=== PATIENT | male | born 2000 | race Hispanic/Latino ===

== ENCOUNTER 2021-11-21 16:48 | Emergency (ER) | payer SELFPAY ==
[2021-11-21] MEDS ORDERED: NA CHLORIDE 0.9% 1,000 ML ONE ×3 (17:08→19:41)
[2021-11-21] MEDS ORDERED: MORPHINE 4 MG/ML SYR ONE (17:09)
[2021-11-21] MEDS ORDERED: ONDANSETRON 4 MG/2 ML VIAL ONE (17:09)
[2021-11-21 17:14] LABS: Absolute Lymphocytes (CBC) 1.5 K/uL (0.7-4.9); Hematocrit 42.5 % (39.6-49.0); Lymphocytes % 16.8 % (15.3-44.8); MPV 9.2 fL (7.6-11.3); RBC Red Blood Cell Count 5.04 M/uL (4.33-5.43)
--- NOTE | 2021-11-21 18:05 | RAD REPORT ---
EXAM DESCRIPTION: CT - Head C Spine Cap Marla Juarez - 11/21/2021 5:36 pm CLINICAL HISTORY: Head and neck injury with chest and abdominal pain status post fall from a ladder. . Head and neck pain . TECHNIQUE: Computed axial tomography of the head and cervical spine was obtained Computed axial tomography of the chest, abdomen and pelvis was obtained. 100 cc Isovue-300 was given intravenously coronal and sagittal reconstruction was performed. All CT scans are performed using dose optimization technique as appropriate and may include automated exposure control or mA/KV adjustment according to patient size. COMPARISON: none FINDINGS: An intracranial bleed is not seen. The ventricles are normal in caliber. An extra-axial fl uid collection is not noted. Fluid within the sinuses is not seen A cervical fracture is not seen. No dislocation is seen. A mediastinal hematoma is not noted. A pleural effusion is not present. A lung contusion is not seen. Pneumo mediastinum is present. Subcutaneous emphysema extends into the lower neck. The majority of th e air surrounds the esophagus. The liver, spleen, pancreas, adrenals, kidneys and bladder do not demonstrate a traumatic injury IMPRESSION: No acute intracranial abnormality is seen A cervical fracture is not visualized. If the patient continues have symptoms to suggest intracranial /spinal cord pathology then MRI would be recommended. Pneumomediastinum. I suspect there is an esophageal tear
[2021-11-21] MEDS ORDERED: MORPHINE 2 MG/ML SYR ONE (18:25)
[2021-11-21] MEDS ORDERED: PIPERACIL/TAZO 3.375 GM VIAL IV ONE (18:27)
[2021-11-21] MEDS ORDERED: NA CHLORIDE 0.9% 100 ML IV ONE (18:27)
--- NOTE | 2021-11-21 18:27 | EDPHYS ---
Physician Documentation [facility] Name: Ceasar Nichole Age: 21 yrs Sex: Male : 2000 Arrival Date: 11/21/2021 Time: 16:49 Bed 5 Private MD: ED Physician Huang Morrow HPI: 11/21 16:55 This 21 yrs old Male presents to ER via Unassigned with complaints of Fall cp Injury. 16:55 Details of fall: The patient fell from a height, from a ladder, approximately 12 feet, cp and struck a grass-covered surface. Onset: The symptoms/episode began/occurred 2 hour(s) ago. Associated injuries: The patient sustained injury to the chest, specifically the right clavicle, anterior aspect of right upper chest and mid-sternal area, pain with breathing, pain with movement. 16:55 Severity of symptoms: in the emergency department the symptoms are actually worse, cp moderately. Patient reports losing balance while standing on ladder with feet 10-15 feet off ground. Believes he landed on right shoulder area with no LOC. Historical: - Allergies: 16:55 No Known Allergies; ll1 - PMHx: 16:55 None; ll1 - PSHx: 16:55 None; ll1 - Immunization history:: Client reports having NOT received the Covid vaccine. - Social history:: Smoking status: Reported history of juuling and/or vaping. - Immunization history: Last tetanus immunization: > 10 years ago. ROS: 17:00 Constitutional: Negative for body aches, chills, fever, poor PO intake. cp 17:00 Neck: Negative for pain with movement, pain at rest. cp 17:00 Cardiovascular: Positive for chest pain. 17:00 Respiratory: Negative for cough, shortness of breath, wheezing. 17:00 Abdomen/GI: Negative for abdominal pain, vomiting, diarrhea, constipation. 17:00 Back: Negative for pain at rest, pain with movement. 17:00 Neuro: Negative for altered mental status, syncope, weakness. 17:00 All other systems are negative. Exam: 17:05 Constitutional: The patient appears in no acute distress, alert, awake, cp non-diaphoretic, non-toxic, well developed, well nourished, uncomfortable. 17:05 Head/Face: Normocephalic, atraumatic. cp 17:05 Eyes: Periorbital structures: appear normal, Pupils: equal, round, and reactive to light and accomodation, Extraocular movements: intact throughout, Conjunctiva: normal, no exudate, no injection, Lids and lashes: appear normal, bilaterally. 17:05 ENT: External ear(s): are unremarkable, Nose: is normal, Mouth: Lips: moist, Oral mucosa: moist, Posterior pharynx: Airway: no evidence of obstruction, patent. 17:05 Neck: C-spine: C-collar placed in ED, vertebral tenderness, is not appreciated, crepitus, is not appreciated. 17:05 Chest/axilla: Inspection: normal, Palpation: crepitus, is not appreciated, tenderness, that is moderate, of the right clavicle, anterior aspect of right upper chest and mid-sternal area, that partially reproduces the patient's complaints. 17:05 Cardiovascular: Rate: normal, Rhythm: regular, Edema: is not appreciated, JVD: is not appreciated. 17:05 Respiratory: the patient does not display signs of respiratory distress, Respirations: normal, no use of accessory muscles, no retractions, labored breathing, is not present, Breath sounds: are clear throughout, no decreased breath sounds, no stridor, no wheezing. 17:05 Abdomen/GI: Inspection: abdomen appears normal, Bowel sounds: active, all quadrants, Palpation: abdomen is soft and non-tender, in all quadrants, rebound tenderness, is not appreciated, involuntary guarding, is not appreciated. 17:05 Back: pain, is absent, ROM is normal. 17:05 Musculoskeletal/extremity: Extremities: all appear grossly normal, with no appreciated pain with palpation. 17:05 Neuro: Orientation: to person, place \\T\\ time. Mentation: is normal, Cerebellar function: is grossly normal, Motor: moves all fours, strength is normal, Sensation: is normal. Vital Signs: 16:55 BP 134 / 80; Pulse 63; Resp 16; Temp 98.8; Pulse Ox 100% ; Weight 65.77 kg; Height 5 ll1 ft. 10 in. (177.80 cm); Pain 10/10; 18:40 BP 144 / 93; Pulse 78; Resp 16; Pulse Ox 100% on R/A; ic1 19:25 BP 127 / 73; Pulse 67; Resp 18 S; Pulse Ox 99% on R/A; as6 20:51 BP 114 / 67; Pulse 75; Resp 18 S; Pulse Ox 99% on R/A; as6 22:03 BP 125 / 73; Pulse 61; Resp 18 S; Pulse Ox 99% on R/A; as6 16:55 Body Mass Index 20.81 (65.77 kg, 177.80 cm) ll1 [place] Coma Score: 17:44 Eye Response: spontaneous(4). Verbal Response: oriented(5). Motor Response: obeys ic1 commands(6). Total: 15. Trauma Score (Adult): 17:44 Eye Response: spontaneous(1); Verbal Response: oriented(1); Motor Response: obeys ic1 commands(2); Systolic BP: > 89 mm Hg(4); Respiratory Rate: 10 to 29 per min(4); [place] Score: 15; Trauma Score: 12 MDM: 16:54 Patient medically screened. cp 18:00 Differential diagnosis: closed head injury, contusion, fracture, multiple trauma. cp 18:28 Data reviewed: vital signs, nurses notes, lab test result(s), radiologic studies, I cp have discussed the patient's presentation/case with the attending Emergency Department Physician; and as a result, I will administer antibiotics Zosyn, transfer patient. Data interpreted: Pulse oximetry: on room air is 100 %. Interpretation: normal. 18:45 ED course: . ED course: Consulted with Dr. Chaves, recommends transfer to trauma rn center for pneumomediastinum. Spoke with Loida Gomez, who accepts transfer but they do not believe is esophageal tear and likely going to discharge patient. . 11/21 16:56 Order name: Basic Metabolic Panel; Complete Time: 18:10 cp 11/21 18:10 Interpretation: Normal except: GFR 79. 11/21 16:56 Order name: CBC with Diff; Complete Time: 18:10 11/21 18:11 Interpretation: Normal except: MCV 84.2; CHANEL% 77.0. cp 11/21 16:56 Order name: Type And Screen; Complete Time: 18:43 cp 11/21 16:56 Order name: CT Traumagram (Head C Spine CAP W Con); Complete Time: 18:10 11/21 18:24 Order name: COVID-19 SARS RT PCR (Document "Date of Onset" if Symptomatic) cp 11/21 18:24 Order name: SARS-COV-2 RT PCR EDMS 11/21 16:56 Order name: Labs collected and sent; Complete Time: 17:03 cp Administered Medications: 07:15 Drug: morphine 2 mg Route: IVP; Site: right antecubital; ic1 17:15 Drug: NS 0.9% 1000 ml Route: IV; Rate: 1 bolus; Site: right antecubital; ic1 19:25 Follow up: Response: No adverse reaction; IV Status: Completed infusion; IV Intake: lg3 1000ml 17:15 Drug: Zofran (Ondansetron) 4 mg Route: IVP; Site: right antecubital; ic1 19:24 Follow up: Response: No adverse reaction lg3 18:38 Drug: NS 0.9% 1000 ml Route: IV; Rate: 1 bolus; Site: left antecubital; ic1 19:24 Follow up: IV Status: Completed infusion; IV Intake: 1000ml lg3 18:39 Dru.375 grams of (Zosyn (piperacillin-tazobactam) 3.375 grams, NS 0.9% 100 ml) ic1 Route: IVPB; Infused Over: 60 mins; Site: right antecubital; 19:24 Follow up: Response: No adverse reaction; IV Status: Completed infusion; IV Intake: lg3 100ml 18:40 Drug: morphine 2 mg Route: IVP; Site: right antecubital; ic1 19:24 Follow up: Response: No adverse reaction lg3 19:42 Drug: NS 0.9% 1000 ml Route: IV; Rate: 125 ml/hr; Site: right antecubital; as6 22:05 Follow up: IV Status: Infusion continued upon transfer as6 Disposition: 18:45 Co-signature as Attending Physician, Huang Morrow MD I agree with the assessment and rn plan of care. Attestation: The patient's history, exam findings, diagnostics, and a summary of any interventions or procedures was reviewed in detail with Luis PAINTING. Disposition Summary: 11/21/21 18:26 Transfer Ordered Transfer Location: [facility] cp Reason: Higher level of care cp Condition: Stable cp Problem: new cp Symptoms: have improved cp Accepting Physician: Doctor(11/21/21 22:05) as6 Diagnosis - Traumatic Pneumomediastinum cp - Fall on and from ladder, initial encounter cp Forms: - Medication Reconciliation Form cp - SBAR form cp Signatures: Dispatcher [employer] EDMS Huang Morrow MD MD rn Page, Corey, PA PA cp Sina Amin RN RN ll1 Titi Murray RN RN as6 Shiloh Jay RN RN ic1 Kim Chanel RN lg3 Corrections: (The following items were deleted from the chart) 18:11 18:11 Normal except: MCV 84.2. cp cp 22:05 18:26 Doctor cp as6
--- NOTE | 2021-11-21 18:27 | ER ---
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 No LOC ll1 or head injury. Chest pain and tenderness since. Gait steady. Coronavirus screen: Vaccine status: Patient reports being unvaccinated. Client denies travel out of the [place] in the last 14 days. At this time, the client does not indicate any symptoms associated with coronavirus-19. Ebola Screen: Patient denies travel to an Ebola-affected area in the 21 days before illness onset. Initial Sepsis Screen: Does the patient meet any 2 criteria? No. Patient's initial sepsis screen is negative. Does the patient have a suspected source of infection? No. Patient's initial sepsis screen is negative. Risk Assessment: Do you want to hurt yourself or someone else? Patient reports no desire to harm self or others. Onset of symptoms was November 21, 2021. 16:55 Method Of Arrival: Ambulatory ll1 16:55 Acuity: INDIRA 3 ll1 19:26 Care prior to arrival: None. Mechanism of Injury: Fall approximately 15 feet. Trauma as6 event details: Injury occurred in the [facility]. Triage Assessment: 16:57 General: Appears uncomfortable, Behavior is calm, cooperative, appropriate for age. ll1 Pain: Complains of pain in chest. Trauma Activation: Alert Physician: ED Physician; Name: ; Notified At: ; Arrived At: Physician: General Surgeon; Name: ; Notified At: ; Arrived At: Physician: Radiology; Name: ; Notified At: ; Arrived At: Physician: Respiratory; Name: ; Notified At: ; Arrived At: Physician: Lab; Name: ; Notified At: ; Arrived At: Historical: - Allergies: 16:55 No Known Allergies; ll1 - PMHx: 16:55 None; ll1 - PSHx: 16:55 None; ll1 - Immunization history:: Client reports having NOT received the Covid vaccine. - Social history:: Smoking status: Reported history of juuling and/or vaping. - Immunization history: Last tetanus immunization: > 10 years ago. Screenin:44 Abuse screen: Denies threats or abuse. Denies injuries from another. Tuberculosis ic1 screening: No symptoms or risk factors identified. 19:07 Nutritional screening: No deficits noted. Fall Risk Fall in past 12 months (25 points). as6 Total Allen Fall Scale indicates Low Risk Score (25-44 pts). Side Rails Up X 2 Family Present and informed to notify staff if they need to leave bedside As available Patient and Family Educated on Fall Prevention Program and strategies. Primary Survey: 17:44 NO uncontrolled hemorrhage observed. A: Airway: patent. Breathing/Chest: Respiratory ic1 pattern: regular, Respiratory effort: spontaneous, unlabored, Chest inspection: symmetrical rise and fall of the chest. Circulation: Skin color: pink. Disability Alert. Exposure/Environment: There is no evidence of uncontrolled external bleeding. No obvious injuries are noted at this time. 19:26 Reassessment Breathing/Chest Respiratory pattern Regular Respiratory effort Spontaneous.as6 Secondary Survey: 17:44 HEENT: No deficits noted. Gastrointestinal: No deficits noted. : No deficits noted. ic1 Musculoskeletal: No deficits noted. Assessment: 17:00 Reassessment: Pt placed into c-collar. Tolerated. ic1 17:44 General: Appears in no apparent distress. comfortable, Behavior is calm, cooperative. ic1 Pain: Complains of pain in left supraclavicular area, left clavicle, anterior aspect of left upper chest, left lateral anterior chest and left lateral posterior chest. Neuro: Level of Consciousness is awake, alert, obeys commands, Oriented to person, place, time, situation. EENT: No deficits noted. Cardiovascular: Denies chest pain, lightheadedness, palpitations. Respiratory: Denies cough, shortness of breath. GI: No deficits noted. : No deficits noted. Derm: No deficits noted. Musculoskeletal: No deficits noted. 20:51 Reassessment: Patient appears in no apparent distress at this time. as6 Vital Signs: 16:55 BP 134 / 80; Pulse 63; Resp 16; Temp 98.8; Pulse Ox 100% ; Weight 65.77 kg; Height 5 ll1 ft. 10 in. (177.80 cm); Pain 10/10; 18:40 BP 144 / 93; Pulse 78; Resp 16; Pulse Ox 100% on R/A; ic1 19:25 BP 127 / 73; Pulse 67; Resp 18 S; Pulse Ox 99% on R/A; as6 20:51 BP 114 / 67; Pulse 75; Resp 18 S; Pulse Ox 99% on R/A; as6 22:03 BP 125 / 73; Pulse 61; Resp 18 S; Pulse Ox 99% on R/A; as6 16:55 Body Mass Index 20.81 (65.77 kg, 177.80 cm) ll1 [place] Coma Score: 17:44 Eye Response: spontaneous(4). Verbal Response: oriented(5). Motor Response: obeys ic1 commands(6). Total: 15. Trauma Score (Adult): 17:44 Eye Response: spontaneous(1); Verbal Response: oriented(1); Motor Response: obeys ic1 commands(2); Systolic BP: > 89 mm Hg(4); Respiratory Rate: 10 to 29 per min(4); Brian Score: 15; Trauma Score: 12 ED Course: 16:49 Patient arrived in ED. ds1 16:50 Luis Meneses PA is PHCP. cp 16:50 Huang Morrow MD is Attending Physician. cp 16:55 Arm band placed on Patient placed in an exam room, on a stretcher. ll1 16:56 Shiloh Jay, RN is Primary Nurse. ic1 16:57 Triage completed. ll1 17:36 CT Traumagram (Head C Spine CAP W Con) In Process Unspecified. EDMS 17:44 Patient has correct armband on for positive identification. Bed in low position. Call ic1 light in reach. Side rails up X2. Adult w/ patient. 17:44 Patient maintains SpO2 saturation greater than 95% on room air. ic1 19:23 COVID-19 SARS RT PCR (Document "Date of Onset" if Symptomatic) Sent. lg3 19:27 Thermoregulation: warm blanket given to patient. as6 22:03 No provider procedures requiring assistance completed. Patient transferred, IV remains as6 in place. Administered Medications: 07:15 Drug: morphine 2 mg Route: IVP; Site: right antecubital; ic1 17:15 Drug: NS 0.9% 1000 ml Route: IV; Rate: 1 bolus; Site: right antecubital; ic1 19:25 Follow up: Response: No adverse reaction; IV Status: Completed infusion; IV Intake: lg3 1000ml 17:15 Drug: Zofran (Ondansetron) 4 mg Route: IVP; Site: right antecubital; ic1 19:24 Follow up: Response: No adverse reaction lg3 18:38 Drug: NS 0.9% 1000 ml Route: IV; Rate: 1 bolus; Site: left antecubital; ic1 19:24 Follow up: IV Status: Completed infusion; IV Intake: 1000ml lg3 18:39 Dru.375 grams of (Zosyn (piperacillin-tazobactam) 3.375 grams, NS 0.9% 100 ml) ic1 Route: IVPB; Infused Over: 60 mins; Site: right antecubital; 19:24 Follow up: Response: No adverse reaction; IV Status: Completed infusion; IV Intake: lg3 100ml 18:40 Drug: morphine 2 mg Route: IVP; Site: right antecubital; ic1 19:24 Follow up: Response: No adverse reaction lg3 19:42 Drug: NS 0.9% 1000 ml Route: IV; Rate: 125 ml/hr; Site: right antecubital; as6 22:05 Follow up: IV Status: Infusion continued upon transfer as6 Intake: 17:44 IV: 1000ml (IV Fluid); Total: 1000ml. ic1 19:24 IV: 1000ml; Total: 2000ml. lg3 19:24 IV: 100ml; Total: 2100ml. lg3 19:25 IV: 1000ml; Total: 3100ml. lg3 Outcome: 18:26 ER care complete, transfer ordered by MD. lui 22:03 Transferred by ground EMS to [facility], Transfer form completed. X-rays sent as6 w/ patient. 22:03 Condition: stable 22:03 Instructed on the need for transfer. 22:04 Patient's length of stay in the Emergency Department was greater than 2 hours. due to as6 awaiting transport Patient's length of stay extended due to 22:05 Patient left the ED. as6 Signatures: Dispatcher [employer] [facility] Domonique Jasmine ds1 Luis Meneses PA PA cp Gibson, Lacie, RN RN lg3 Sina Amin RN RN ll1 Titi Murray, RN RN as6 Shiloh Jay, RN RN ic1
[2021-11-22 00:17] VITALS: TEMP 98.8
[2021-11-22 00:22] VITALS: O2SAT 99
[2021-11-22 00:25] VITALS: BP 125/73
== END 2021-11-21 22:05 | disposition short-term general hospital (02) ==
LOC: ER 16:48
DX: T79.7XXA Traumatic subcutaneous emphysema, initial encounter (principal); U07.1 COVID-19; W11.XXXA Fall on and from ladder, initial encounter
CPT/HCPCS: 36415; 70450; 71260; 72125; 74177; 80048; 85025; 86850; 86900; 86901; 96361; 96365; 96375; 99285; J2270; J2405; J2543; J7030; Q9967; U0003